=== PATIENT | male | born 1980 | race Hispanic/Latino ===

== ENCOUNTER 2020-11-28 03:06 | Inpatient (IN) | payer OTHER, SELFPAY ==
[2020-11-28 03:39] LABS: Absolute Lymphocytes (CBC) 1.7 K/uL (0.7-4.9); Basophils % 0.8 % (0-1.3); Hematocrit 35.9 % (39.6-49.0); Lymphocytes % 22.2 % (15.3-44.8); RBC Red Blood Cell Count 4.45 M/uL (4.33-5.43)
[2020-11-28 03:44] LABS: Protime INR 1.35
[2020-11-28 03:59] LABS: ALT/SGPT 34 U/L (12-78); AST/SGOT 31 U/L (15-37); Albumin 3.1 g/dL (3.4-5.0); Alkaline Phosphatase 102 U/L (45-117); BUN Blood Urea Nitrogen 5 mg/dL (7-18); Bicarbonate 25 mmol/L (21-32); Bilirubin Direct 0.4 mg/dL (0-0.2); Bilirubin Total 1.2 mg/dL (0.2-1.0); Glucose Level 97 mg/dL (74-106); NT PRO-BNP 26 pg/mL (<125); Potassium 3.8 mmol/L (3.5-5.1); Protein, Total 8.3 g/dL (6.4-8.2); Sodium Level 135 mmol/L (136-145); Troponin (Emerg Dept Use Only) < 0.02 ng/mL (0.0-0.045)
[2020-11-28 04:13] LABS: Urine Blood TRACE (NEG); Urine Glucose NEGATIVE (NEG); Urine Protein NEGATIVE (NEG); Urine pH 6.5 (5.0-7.0)
[2020-11-28 04:44] LABS: Barbiturates NEGATIVE (NEGATIVE); Benzodiazepines NEGATIVE (NEGATIVE); Cocaine NEGATIVE (NEGATIVE); METHAMPHETAM NEGATIVE (NEGATIVE); Methadone NEGATIVE (NEGATIVE); Opiates NEGATIVE (NEGATIVE); Phencyclidine NEGATIVE (NEGATIVE); THC Cannibis NEGATIVE (NEGATIVE)
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
[2020-11-28] MEDS: FOLIC ACID 1 MG TABLET PO SCH (06:32)
[2020-11-28] MEDS: VITAMIN D 1000 UNIT TAB PO SCH (06:32)
[2020-11-28] MEDS ORDERED: METHYLPREDNISOLONE 125 MG INJ IV ONE (06:32)
[2020-11-28] MEDS: ASCORBIC ACID 500 MG TABLET PO SCH ×4 (06:32→21:38)
[2020-11-28] MEDS: ZINC SULFATE 220 MG CAP PO SCH (06:32)
[2020-11-28] MEDS ORDERED: FUROSEMIDE 40 MG/4 ML VIAL IV SCH (06:32)
[2020-11-28] MEDS ORDERED: ONDANSETRON 4 MG/2 ML VIAL IV PRN (06:37)
[2020-11-28] MEDS: METOPROLOL TAR 25 MG TAB PO SCH ×2 (06:37→17:14)
[2020-11-28] MEDS ORDERED: METHYLPREDNISOLONE 125 MG INJ ONE (07:10)
[2020-11-28] MEDS ORDERED: FUROSEMIDE 40 MG/4 ML VIAL ONE (07:10)
[2020-11-28] MEDS ORDERED: FOLIC ACID 1 MG TABLET ONE (07:10)
[2020-11-28] MEDS ORDERED: METOPROLOL TAR 25 MG TAB ONE (07:10)
[2020-11-28] MEDS ORDERED: ASCORBIC ACID 500 MG TABLET ONE (07:11)
[2020-11-28] MEDS ORDERED: ZINC SULFATE 220 MG CAP ONE (07:12)
[2020-11-28] MEDS ORDERED: VITAMIN D 1000 UNIT TAB ONE (07:13)
[2020-11-28] MEDS: INSULIN -REGULAR HUMAN 50 UNIT/0.5 ML ML SQ SCH ×4 (07:30→21:40)
[2020-11-28 07:36] LABS: C-Reactive Protein 44.2 mg/L (<3.00); Ferritin 26.3 ng/mL (26-388)
[2020-11-28 08:49] VITALS: BMI 48.1
[2020-11-28] MEDS ORDERED: IVERMECTIN 3 MG TABLET PO ONE ×2 (09:00→10:00)
[2020-11-28] MEDS ORDERED: ENOXAPARIN 40 MG/0.4 ML SQ SCH (09:00)
[2020-11-28] MEDS: ASPIRIN EC 81 MG TAB PO SCH (09:07)
[2020-11-28] MEDS: THIAMINE HCL 100 MG TABLET PO SCH ×2 (09:07→21:39)
--- NOTE | 2020-11-28 09:49 | P.PN ---
Subjective Date of Service: 11/28/20 Primary Care Provider: none Chief Complaint: Chest pain Subjective: Other (Patient reported some shortness of breath this morning. Patient was found to be positive for COVID. Patient admits increased alcohol intake.) Physical Examination - Vital Signs Temperature: 96.9 F Blood Pressure: 137/64 Pulse: 62 Respirations: 20 Pulse Ox (%): 95 - Studies Laboratory Data (last 24 hrs) 11/28/20 03:10: PT 15.6 H, INR 1.35 11/28/20 03:10: WBC 7.60, Hgb 11.5 L, Hct 35.9 L, Plt Count 77 L 11/28/20 03:10: Sodium 135 L, Potassium 3.8, BUN 5 L, Creatinine 0.50 L, Glucose 97, Magnesium 2.0, Total Bilirubin 1.2 H, AST 31, ALT 34, Alkaline Phosphatase 102 Assessment & Plan Discharge Plan: Home Plan to discharge in: 24 Hours Physician Review Additional Text: Physical exam: Patient alert, cooperative. Mild shortness of breath noted Heart: Regular rate rhythm Lungs: Crackles to the bases bilateral Abdomen: Soft nontender nondistended. Patient obese. Extremities: 1 to 2+ pitting edema to the lower extremities Impression: Chest pain, shortness of breath likely related to acute on chronic diastolic CHF complicated with COVID 19 pneumonia Hypertension Diabetes mellitus type 2 Alcohol abuse Obesity, BMI greater than 40 Thrombocytopenia likely related to alcohol abuse Suspect underlying obstructive sleep apnea Plan: Chest pain, shortness of breath likely related to acute on chronic diastolic CHF complicated with COVID 19 pneumonia: Patient admitted for further evaluation and treatment. CT scan pending. Await findings. Continue aspirin, statin and beta-maryan therapy. Will also start IV Lasix for likely underlying CHF. For his COVID infection, will start on IV Solu-Medrol, Ivermectin, and vitamin supplementation. Will check oxygen requirement. Await recommendations by Cardiology. Will also consult pulmonology as well. Patient may require oxygen at discharge. Anticipate improvement over the next 24 hr. Will monitor closely. Hypertension: Continue medication. Will monitor and adjust appropriately. Diabetes mellitus type 2: Will check A1c. Sliding scale in place. Alcohol abuse: Alcohol cessation addressed in detail. Patient reports that he drinks excessively. Patient considering to wean off over time. Obesity, BMI greater than 40: Lifestyle modification education addressed in detail. Thrombocytopenia likely related to alcohol abuse: May need to hold anti coagulation therapy at this time. Will monitor closely. This may be related to underlying liver disease. Suspect underlying obstructive sleep apnea: This can be further evaluated as an outpatient. Pulmonology may be able to make arrangements. Time Spent Managing Pts Care (In Minutes): 55
[2020-11-28 10:46] LABS: HDL Cholesterol 90 mg/dL (40-60); LDL Cholesterol, Calculated 80 (<130); Troponin I < 0.02 ng/mL (0.0-0.045)
[2020-11-28 11:34] LABS: Urine Appearance CLEAR; Urine Bilirubin NEGATIVE (NEG); Urine Blood NEGATIVE (NEG); Urine Color YELLOW; Urine Glucose NEGATIVE (NEG); Urine Microscopic Reflex NO UMIC; Urine Protein NEGATIVE (NEG); Urine Specific Gravity <=1.005 (1.005-1.030)
--- NOTE | 2020-11-28 12:06 | RAD REPORT ---
EXAM DESCRIPTION: Chest For Pe Angio CLINICAL HISTORY: 40 years, Male, CHEST PAIN COMPARISON: None. TECHNIQUE: Axial images through the chest were performed after the administration of intravenous con trast using a pulmonary embolus protocol. MIPS were performed. This exam was performed according to our departmental dose-optimization program which includes use of Automated Exposure Control, adjustm ent of the mA and/or kV according to patient size and/or use of iterative reconstruction technique. FINDINGS: No pulmonary embolus is identified. Normal caliber aorta without dissection. No pericardial effusion. Mild cardiomegaly. No pleural effusion. Left basilar consolidation probably representing areas of subsegmental atelectasis. No pneumothorax. Patent central airway. Soft tissues are unremarkable. No acute osseous findings. No acute abnormality within the visualized upper abdomen. IMPRESSION: Motion degraded exam. Negative for pulmonary embolism. Consolidation left lung base probably representing subsegmental atelectasis. Electronically signed by: Clay Muniz DO 11/28/2020 5:21 AM CDT Due to temporary technical issues with the PACS/Fluency reporting system, reports are being signed by the in house radiologist without review as a courtesy to ensure prompt reporting. The interpreting r adiologist is fully responsible for the content of the report.
--- NOTE | 2020-11-28 12:07 | RAD REPORT ---
EXAM DESCRIPTION: Chest Radiography COMPARISON: None. CLINICAL HISTORY: [facility] MAIN CHEST PAIN FINDINGS: A single AP view of the chest demonstrates a mildly enlarged cardiomediastinal silhouette. No pneumothorax. Small left pleural effusion. Mild bibasilar opacities are present. Elevation of left hemidiaphragm is noted. Osseous structures are intact. IMPRESSION: Mild cardiomegaly with small left pleural effusion and bibasilar opacities. These opacit ies may represent pulmonary edema or early infection. Elevation of left hemidiaphragm is present. Electronically signed by: Nicholas Solomon MD 11/28/2020 3:51 AM CDT Due to temporary technical issues with the PACS/Fluency reporting system, reports are being signed by the in house radiologist without review as a courtesy to ensure prompt reporting. The interpreting r adiologist is fully responsible for the content of the report.
[2020-11-28] MEDS: lisinopriL 10 MG TAB PO SCH (13:31)
[2020-11-28] MEDS: FUROSEMIDE 40 MG/4 ML VIAL IV SCH ×2 (13:49→21:38)
[2020-11-28] MEDS: METHYLPREDNISOLONE 125 MG INJ IV SCH ×2 (13:50→21:39)
[2020-11-28] MEDS ORDERED: INFLUENZA VACCINE (for 3y+) 0.5 ML DOSE IMVAC ONE (16:00)
[2020-11-28] MEDS ORDERED: MELATONIN 5 MG TABLET PO SCH (21:00)
[2020-11-28] MEDS ORDERED: ATORVASTATIN 20 MG TAB PO SCH (21:00)
[2020-11-28] MEDS ORDERED: ACETAMINOPHEN 500 MG TAB PO PRN (22:11)
[2020-11-29 04:34] LABS: Absolute Lymphocytes (CBC) 0.6 K/uL (0.7-4.9); Hematocrit 40.5 % (39.6-49.0); Lymphocytes % 6.2 % (15.3-44.8); MPV 11.4 fL (7.6-11.3); RBC Red Blood Cell Count 4.97 M/uL (4.33-5.43)
[2020-11-29 04:44] LABS: ALT/SGPT 35 U/L (12-78); AST/SGOT 22 U/L (15-37); Albumin 3.1 g/dL (3.4-5.0); Alkaline Phosphatase 104 U/L (45-117); BUN Blood Urea Nitrogen 15 mg/dL (7-18); Bicarbonate 31 mmol/L (21-32); Bilirubin Total 1.1 mg/dL (0.2-1.0); Glucose Level 163 mg/dL (74-106); Magnesium 2.4 mg/dL (1.8-2.4); Potassium 3.5 mmol/L (3.5-5.1); Sodium Level 142 mmol/L (136-145)
[2020-11-29] MEDS: METOPROLOL TAR 25 MG TAB PO SCH (05:17)
[2020-11-29 05:35] LABS: Blood Morphology Comment NOT SEEN (NOT SEEN); Platelet Estimate DECR
[2020-11-29] MEDS: INSULIN -REGULAR HUMAN 50 UNIT/0.5 ML ML SQ SCH ×2 (07:30→11:30)
[2020-11-29] MEDS: FOLIC ACID 1 MG TABLET PO SCH (08:17)
[2020-11-29] MEDS: VITAMIN D 1000 UNIT TAB PO SCH (08:17)
[2020-11-29] MEDS: ASCORBIC ACID 500 MG TABLET PO SCH ×2 (08:17→12:02)
[2020-11-29] MEDS: lisinopriL 10 MG TAB PO SCH (08:17)
[2020-11-29] MEDS: FUROSEMIDE 40 MG/4 ML VIAL IV SCH (08:18)
[2020-11-29] MEDS: ZINC SULFATE 220 MG CAP PO SCH (08:18)
[2020-11-29] MEDS: METHYLPREDNISOLONE 125 MG INJ IV SCH (08:18)
[2020-11-29] MEDS: THIAMINE HCL 100 MG TABLET PO SCH (08:18)
[2020-11-29] MEDS: ASPIRIN EC 81 MG TAB PO SCH (08:18)
--- NOTE | 2020-11-29 08:55 | P.DS ---
Admission Date: 11/28/20 Discharge Date: 11/29/20 Primary Care Provider: Dr. Henry Disposition: ROUTINE DISCHARGE Discharge Condition: GOOD Reason for Admission: Chest pain Consultations: Cardiology-Dr. Boland Pulmonary-Dr. Mariano Procedures: COVID: Positive CT scan: COMPARISON: None. TECHNIQUE: Axial images through the chest were performed after the administration of intravenous contrast using a pulmonary embolus protocol. MIPS were performed. This exam was performed according to our departmental dose-optimization program which includes use of Automated Exposure Control, adjustment of the mA and/or kV according to patient size and/or use of iterative reconstruction technique. FINDINGS: No pulmonary embolus is identified. Normal caliber aorta without dissection. No pericardial effusion. Mild cardiomegaly. No pleural effusion. Left basilar consolidation probably representing areas of subsegmental ate lectasis. No pneumothorax. Patent central airway. Soft tissues are unremarkable. No acute osseous findings. No acute abnormality within the visualized upper abdomen. IMPRESSION: Motion degraded exam. Negative for pulmonary embolism. Consolidation left lung base probably representing subsegmental atelectasis. Follow up CXR: COMPARISON: November 28, 2020 FINDINGS: Mild left basilar opacity unchanged likely atelectasis Right lung appears clear. The heart is moderately enlarged Medical Problem List: Chest pain, shortness of breath secondary to acute on chronic diastolic CHF complicated with COVID 19 pneumonia Hypertension Pre diabetes Alcohol abuse Obesity, BMI greater than 40 Thrombocytopenia likely related to alcohol abuse and possible liver disease related to Alcohol Suspect underlying obstructive sleep apnea Brief History of Present Illness: 40-year-old male with history of hypertension, diabetes mellitus type 2, obesity, alcohol abuse, tobacco abuse presents emergency department for chest pain. Patient reports that he had recent trip to [place] this last week coming back into town last night. Patient reports that while he was on the plane and a constant throbbing chest pain with associated shortness of breath that seemed to radiate to the neck area. Patient also reports that he did have some neck/shoulder/upper chest wall pain after sleeping wrong last night but states that the pain he experienced on the plane was significantly different. Patient with no former cardiac evaluation, reports drinking approximately 12 pack of beer every day and more on the weekends for the last 4 years. Workup in the emergency department significant for mildly elevated serum alcohol level 98 hemoglobin 11.5 hematocrit 35.9 sodium 135 glucose 97 initial troponin negative. Patient was admitted for further evaluation and treatment. Hospital Course: Patient presented with chest pain, shortness of breath secondary to acute on chronic diastolic CHF. This was complicated with COVID 19 pneumonia. Patient had edema to the lower extremities is well. Patient was started on IV diuretic therapy with improvement. Blood pressures were also elevated requiring medication. During the course of his stay patient was seen and evaluated by pulmonology and Cardiology. No intervention was required. CT scan showed no pulmonary embolism. Patient was started on COVID 19 medication including IV steroids and supplementation. Inflammatory markers were not significantly elevated. Patient improved with diuresis and medication. Cardiac enzymes ruled remained unremarkable. At discharge for his CHF, the patient will continue with a 1500 cc per day fluid restriction and low-salt diet. Recommend to monitor his weight daily. If his weight increases by more than 5 lb he is to contact his PCP or cardiology for further recommendation. At discharge the patient will continue with Lasix 40 mg daily. If edema and shortness of breath improves medications can be adjusted. This can be done with the help of his PCP or cardiology. Recommend follow up with cardiology to further monitor and address. Patient will require echocardiogram to be done as an outpatient and likely cardiac workup to include possible cardiac stress tests or intervention. This can be done with the help of Cardiology. For his COVID 19 pneumonia, patient has improved. No need for home oxygen at discharge. At discharge the patient will continue with prednisone 10 mg 1 pill twice daily for 7 days then 1 pill once daily for 7 days. The patient will continue with vitamin supplementation including vitamin-C 500 mg 3 times a day, vitamin-D 2000 units daily, zinc 220 mg daily, melatonin 5 mg at bedtime, and thiamine 100 mg 1 pill twice daily. Patient will need a continue with COVID 19 isolation protocol for at least 10 days. Continue to encourage ambulation, incentive spirometer and proning. Continue with COVID 19 recommendations including face mask use, hand washing and social distancing. Recommend follow up with pulmonology in 1-2 weeks to follow up this hospitalization and continue his care. Further adjustment in medication can be done by pulmonology. Patient with hypertension. Blood pressures were elevated. Patient required medication. Patient was started on metoprolol and lisinopril. Blood pressure now better controlled. At discharge patient will continue with metoprolol 25 mg 1 pill twice daily and lisinopril 10 mg daily. Recommend to maintain blood pressure less than 130/80. Further adjustment can be done by his PCP. May need to hold medication if blood pressure systolic less than 110. Recommend follow up with PCP to further monitor and address. Patient with pre diabetes. He hemoglobin A1c 5.3. Recommend to recheck hemoglobin A1c in 3-6 months to monitor his progress. Education on pre diabetes will be provided. Patient with alcohol abuse. Alcohol level was elevated upon admission. Patient admits to excessive alcohol use for multiple years. Alcohol cessation addressed in detail. Patient understands the risk of his continue to use. Patient plans to wean off alcohol. Patient had thrombocytopenia. This is likely related to his alcohol abuse and possibly underlying liver disease related to alcohol. Recommend to recheck CBC in 2-4 weeks to monitor resolution. Levels were improved at discharge. Suspect underlying obstructive sleep apnea. Recommend follow up with pulmon ology as an outpatient to further evaluate. Patient may benefit with sleep study to further address and treat. Vital Signs/Physical Exam: Temp Pulse Resp BP Pulse Ox 96.8 F 64 18 118/58 L 94 11/29/20 08:00 11/29/20 08:18 11/29/20 08:00 11/29/20 08:18 11/29/20 08:00 General: Alert, In no apparent distress, Oriented x3, Cooperative HEENT: Atraumatic Neck: Supple Respiratory: Clear to auscultation bilaterally, Normal air movement Cardiovascular: Normal pulses, Regular rate/rhythm Gastrointestinal: Normal bowel sounds, Soft and benign, Non-distended, No tenderness, No masses, No rebound, No guarding Musculoskeletal: No erythema, No tenderness, No warmth Integumentary: No tenderness/swelling Neurological: Normal speech, Normal strength at 5/5 x4 extr, Normal tone, Normal affect Laboratory Data at Discharge: WBC 9.20 K/uL (4.3-10.9) D 11/29/20 03:57 Hgb 12.9 g/dL (13.6-17.9) L 11/29/20 03:57 Hct 40.5 % (39.6-49.0) 11/29/20 03:57 Plt Count 84 K/uL (152-406) L 11/29/20 03:57 PT 15.6 SECONDS (9.5-12.5) H 11/28/20 03:10 INR 1.35 11/28/20 03:10 Sodium 142 mmol/L (136-145) 11/29/20 03:57 Potassium 3.5 mmol/L (3.5-5.1) 11/29/20 03:57 BUN 15 mg/dL (7-18) 11/29/20 03:57 Creatinine 0.66 mg/dL (0.55-1.3) 11/29/20 03:57 Glucose 163 mg/dL (74-106) H 11/29/20 03:57 Magnesium 2.4 mg/dL (1.8-2.4) 11/29/20 03:57 Total Bilirubin 1.1 mg/dL (0.2-1.0) H 11/29/20 03:57 AST 22 U/L (15-37) 11/29/20 03:57 ALT 35 U/L (12-78) 11/29/20 03:57 Alkaline Phosphatase 104 U/L (45-117) 11/29/20 03:57 Troponin I < 0.02 ng/mL (0.0-0.045) 11/28/20 16:24 Triglycerides 84 mg/dL (<150) 11/28/20 10:05 Cholesterol 187 mg/dL (<200) 11/28/20 10:05 HDL Cholesterol 90 mg/dL (40-60) H 11/28/20 10:05 Cholesterol/HDL Ratio 2.08 11/28/20 10:05 Home Medications: Ascorbic Acid [Vitamin C*] 500 mg PO TID #90 tablet 11/29/20 Aspirin [Aspirin EC 81 MG] 81 mg PO DAILY #90 tablet. 11/29/20 Cholecalciferol (Vitamin D3) [Vitamin D 1000 Iu Tab*] 2,000 unit PO DAILY #60 tab 11/29/20 Furosemide [Lasix] 40 mg PO DAILY #30 tab 11/29/20 Melatonin 5 mg PO BEDTIME #30 tablet 11/29/20 Metoprolol Tartrate [Lopressor*] 25 mg PO BID 6AM 6PM #60 tab 11/29/20 Thiamine HCl [Vitamin B-1*] 100 mg PO BID #60 tablet 11/29/20 Zinc Sulfate [Zinc Sulfate*] 220 mg PO DAILY #30 cap 11/29/20 lisinopriL [Prinivil*] 10 mg PO DAILY #30 tab 03/21/21 predniSONE [Deltasone*] 10 mg PO SEECOM #21 tab 11/29/20 New Medications: Aspirin [Aspirin EC 81 MG] 81 mg PO DAILY #90 tablet. predniSONE [Deltasone*] 10 mg PO SEECOM #21 tab Furosemide [Lasix] 40 mg PO DAILY #30 tab Metoprolol Tartrate [Lopressor*] 25 mg PO BID 6AM 6PM #60 tab Melatonin 5 mg PO BEDTIME #30 tablet lisinopriL [Prinivil*] 10 mg PO DAILY #30 tab Thiamine HCl [Vitamin B-1*] 100 mg PO BID #60 tablet Ascorbic Acid [Vitamin C*] 500 mg PO TID #90 tablet Cholecalciferol (Vitamin D3) [Vitamin D 1000 Iu Tab*] 2,000 unit PO DAILY #60 tab Zinc Sulfate [Zinc Sulfate*] 220 mg PO DAILY #30 cap Physician Discharge Instructions: Patient presented with chest pain, shortness of breath secondary to acute on chronic diastolic CHF. This was complicated with COVID 19 pneumonia. Patient had edema to the lower extremities is well. Patient was started on IV diuretic therapy with improvement. Blood pressures were also elevated requiring medication. During the course of his stay patient was seen and evaluated by pulmonology and Cardiology. No intervention was required. CT scan showed no pulmonary embolism. Patient was started on COVID 19 medication including IV steroids and supplementation. Inflammatory markers were not significantly elevated. Patient improved with diuresis and medication. Cardiac enzymes ruled remained unremarkable. At discharge for his CHF, the patient will continue with a 1500 cc per day fluid restriction and low-salt diet. Recommend to monitor his weight daily. If his weight increases by more than 5 lb he is to contact his PCP or cardiology for further recommendation. At discharge the patient will continue with Lasix 40 mg daily. If edema and shortness of breath improves medications can be adjusted. This can be done with the help of his PCP or cardiology. Recommend follow up with cardiology to further monitor and address. Patient will require echocardiogram to be done as an outpatient and likely cardiac workup to include possible cardiac stress tests or intervention. This can be done with the help of Cardiology. For his COVID 19 pneumonia, patient has improved. No need for oxygen at discharge. At discharge the patient will continue with prednisone 10 mg 1 pill twice daily for 7 days then 1 pill once daily for 7 days. The patient will continue with vitamin supplementation including vitamin-C 500 mg 3 times a day, vitamin-D 2000 units daily, zinc 220 mg daily, melatonin 5 mg at bedtime, and thiamine 100 mg 1 pill twice daily. Patient will need a continue with COVID 19 isolation protocol for at least 10 days. Continue to encourage ambulation, incentive spirometer and proning. Continue with COVID 19 recommendations including face mask use, hand washing and social distancing. Recommend follow up with pulmonology in 1-2 weeks to follow up this hospitalization and continue his care. Further adjustment in medication can be done by pulmonology. Patient with hypertension. Blood pressures were elevated. Patient required medication. Patient was started on metoprolol and lisinopril. Blood pressure now better controlled. At discharge patient will continue with metoprolol 25 mg 1 pill twice daily and lisinopril 10 mg daily. Recommend to maintain blood pressure less than 130/80. Further adjustment can be done by his PCP. May need to hold medication if blood pressure systolic less than 110. Recommend follow up with PCP to further monitor and address. Patient with pre diabetes. He hemoglobin A1c 5.3. Recommend to recheck hemoglobin A1c in 3-6 months to monitor his progress. Education on pre diabetes will be provided. Patient with alcohol abuse. Alcohol level was elevated upon admission. Alcohol cessation addressed in detail. Patient understands the risk of his continue to use. Patient plans to wean off alcohol. Patient had thrombocytopenia. This is likely related to his alcohol abuse and possibly underlying liver disease related to alcohol. Recommend to recheck CBC in 2-4 weeks to monitor resolution. Levels were improved at discharge. Suspect underlying obstructive sleep apnea. Recommend follow up with pulmonology as an outpatient to further evaluate. Patient may benefit with sleep study to further address and treat. Diet: ADA Activity: Ad yamileth Followup: Unknown,U [Primary Care Provider] - Time spent managing pt's care (in minutes): 55
[2020-11-29] MEDS ORDERED: POTASSIUM CL SA 10 MEQ TAB PO ONE (09:00)
[2020-11-29] MEDS ORDERED: FUROSEMIDE 40 MG TABLET PO SCH (09:00)
[2020-11-29] MEDS ORDERED: predniSONE 10 MG TAB PO SCH (09:00)
--- NOTE | 2020-11-29 09:59 | RAD REPORT ---
EXAM DESCRIPTION: Nadiya Single View3 9:40 am CLINICAL HISTORY: Shortness of breath COMPARISON: November 28, 2020 FINDINGS: Mild left basilar opacity unchanged likely atelectasis Right lung appears clear. The heart is moderately enlarged
[2020-11-29 14:05] VITALS: BP 130/76; TEMP 97.6
[2020-11-29 15:07] VITALS: O2SAT 92
== END 2020-11-29 15:33 | disposition home or self-care (01) | DRG 177 ==
LOC: ER 03:06 → ERHOLD 05:14 → 4TH 08:10 → OBSVTOIN 15:05
PROVIDERS: ADMIT Family Medicine; ATTEND Family Medicine
DX: U07.1 COVID-19 (principal); J12.82 Pneumonia due to coronavirus disease 2019; I50.33 Acute on chronic diastolic (congestive) heart failure; Z68.42 Body mass index [BMI] 45.0-49.9, adult; I11.0 Hypertensive heart disease with heart failure; E66.9 Obesity, unspecified; F17.210 Nicotine dependence, cigarettes, uncomplicated; F10.10 Alcohol abuse, uncomplicated; D69.6 Thrombocytopenia, unspecified; K76.9 Liver disease, unspecified; G47.33 Obstructive sleep apnea (adult) (pediatric); R73.03 Prediabetes; Z79.52 Long term (current) use of systemic steroids; Z79.82 Long term (current) use of aspirin; Z79.899 Other long term (current) drug therapy
CPT/HCPCS: 36415; 71045; 71275; 80048; 80053; 80061; 80076; 80307; 80320; 81003; 82728; 82947; 83036; 83735; 83880; 84439; 84443; 84484; 85025; 85610; 86140; 93005; 94010; 99285; G0378; J1940; J2930; Q9967; U0003